=== PATIENT | male | born 1955 | race Caucasian/White ===

== ENCOUNTER 2018-07-10 09:07 | Emergency (ER) | payer MEDICAID ==
[~2018-07-10] VITALS: Ht 167.6 cm; Wt 83.5 kg
[2018-07-10 09:13] VITALS: Ht 167.6 cm; Wt 83.5 kg
[2018-07-10 10:16] LABS: BASOPHIL % 0.5 % (0-2); PLATELET COUNT 177 x10^3mcL (130-400); RED CELL DISTRIBUTION WIDTH 11.8 % (11.5-14.5)
[2018-07-10 10:27] LABS: ALBUMIN 4.2 g/dL (3.4-5.0); ALKALINE PHOSPHATASE 74 U/L (46-116); ALT/SGPT 69 U/L (16-63); AST/SGOT 37 U/L (15-37); BILIRUBIN TOTAL 0.9 mg/dL (0.20-1.00); CALCIUM 9.2 mg/dL (8.5-10.1); CARBON DIOXIDE 28.6 mmol/L (21-32); CHLORIDE SERUM 101 mmol/L (98-107); CREATININE SERUM 0.7 mg/dL (0.7-1.3); GFR1 > 60 mL/min; GLUCOSE SERUM 189 mg/dL (74-106); SODIUM SERUM 137 mmol/L (136-145); TOTAL PROTEIN, SERUM 7.5 g/dL (6.4-8.2)
[2018-07-10 10:58] VITALS: BP 140/85
== END 2018-07-10 10:58 | disposition home or self-care (01) ==
LOC: ED 09:07
PROVIDERS: Emergency Medicine
DX: R07.89 Other chest pain (principal); I10 Essential (primary) hypertension
CPT/HCPCS: 36415; 82962; Q0092

== ENCOUNTER 2019-07-30 07:35 | Inpatient (IN) | payer MEDICAID ==
[~2019-07-30] VITALS: Ht 167.6 cm; Wt 86.2 kg
--- NOTE | 2019-07-30 07:49 | NUR ---
PER PT STS THAT HE HAS BEEN HAVING CHEST PRESSURE FOR SIX DAYS. PER PT CHEST PRESSURE RADIATES TO RIGHT SIDE OF ABDOMEN. PT STS THAT HE HAS NUMBNESS IN HIS LEFT HAND. PT STS THAT HE HAS BEEN "STRESSING OUT" SO IT INCREASES WITH STRESS. PER PT STS HE HAS SOME DIZZINESS AND BLURRY VISION. PT STS THAT HE HAS NOT BEEN ABLE TO GET HIS METFORMIN FROM HIS DOCTOR DUE TO THEM "NOT CARING". PT STS THAT HE HAS A DRY MOUTH AND HE BELEIVES HIS SUGAR US UNCONTROLLED, STS "I CANT BUT THOSE FANCEY FOODS". PT PLACED ON FULL CM. 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 PT IS AAOX4. SKINDS INTACT-PINK, WARM AND DRY. VSS. RESP E/U. WILL CONTINUE TO MONITOR.
--- NOTE | 2019-07-30 07:57 | NUR ---
DR. MENDEZ AT BEDSIDE FOR MSE.
[2019-07-30 08:21] LABS: BASOPHIL % 0.5 % (0-2); PLATELET COUNT 189 x10^3mcL (130-400); RED CELL DISTRIBUTION WIDTH 12.7 % (11.5-14.5)
[2019-07-30 08:33] LABS: CALCIUM 8.5 mg/dL (8.5-10.1); CARBON DIOXIDE 27.1 mmol/L (21-32); CHLORIDE SERUM 102 mmol/L (98-107); CREATININE SERUM 0.7 mg/dL (0.7-1.3); GFR1 > 60 mL/min; GLUCOSE SERUM 304 mg/dL (74-106); POTASSIUM SERUM 3.7 mmol/L (3.5-5.1); SODIUM SERUM 138 mmol/L (136-145)
[2019-07-30 08:38] LABS: ALBUMIN 3.9 g/dL (3.4-5.0); ALKALINE PHOSPHATASE 109 U/L (46-116); ALT/SGPT 54 U/L (16-63); AST/SGOT 31 U/L (15-37); BILIRUBIN TOTAL 0.71 mg/dL (0.20-1.00); TOTAL PROTEIN, SERUM 7.3 g/dL (6.4-8.2)
[2019-07-30 08:38] LABS: UA SPECIFIC GRAVITY 1.015 (1.005-1.035); microscopic required? YES; urine erythrocyte TRACE (NEGATIVE)
--- NOTE | 2019-07-30 09:12 | NUR ---
PT IN POSITION OF COMFORT SITTING UPRIGHT. VSS. RESP E/U. WILL CONTINUE TO MONITOR.
--- NOTE | 2019-07-30 09:33 | NUR ---
MEDICATED PER EMAR.
--- NOTE | 2019-07-30 11:08 | NUR ---
REPORT GIVEN TO MEGHANN MALIK TO ASSUME CARE OF PT.
[2019-07-30 12:09] VITALS: BP 141/81
--- NOTE | 2019-07-30 12:57 | NUR ---
07/30/19; 1145: REPORT RECEIVED FROM GERARD ED RN. PATIENT ARRIVED BY MARIN TO TELEMETRY ROOM 209B. PATIENT IS ALERT AND ORIENTED X 4. RESPIRATION EVEN AND UNLABORED. NO SIGNS OF DISTRESS. MINIMAL COMPLAINTS OF "CHEST BRUISING" IN CHEST AREA. DR. SHARP NOTIFIED AND MADE AWARE. PATIENT APPEARS WELL-RESTED. WILL CONTINUE TO MONITOR. CALL LIGHT WITHIN REACH.
--- NOTE | 2019-07-30 15:48 | NUR ---
PATIENT RESTING IN BED. NO SIGNS OF DISTRESS NOTED. WILL CONTINUE TO MONITOR.
[2019-07-30 18:08] VITALS: BP 167/84
--- NOTE | 2019-07-30 18:37 | NUR ---
PATIENT IN BED WATCHING TV. NO SIGNS OF DISTRESS NOTED. 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 IT IS HEALED. WILL ENDORSE TO TMD TEACHER ASSISTANT RN.
--- NOTE | 2019-07-30 19:30 | NUR ---
RECEIVED PT IN BED AWAKE, ALERT,ORIENTED X4. NO SOB ON ROOM AIR. HE DENIED CHEST PAIN . BOWEL SOUNDS ACTIVE. NO C/O ABDL PAIN. W/ IV HEPLOCK TO LTAC. CALL LIGHT W/IN REACH.
[2019-07-30 21:20] VITALS: BP 132/72
[2019-07-31 00:35] LABS: AMPHETAMINE QUAL UR NONE DETECTED (See below)
--- NOTE | 2019-07-31 02:00 | NUR ---
PT SLEEPING SOUNDLY. HE IS EASILY AROUSABLE. NO C/O DISCOMFORT.
[2019-07-31 06:06] VITALS: BP 139/74
--- NOTE | 2019-07-31 07:00 | NUR ---
RECEIVED BEDSIDE REPORT FROM SCALE MANAGER NURSE AT THIS TIME. PATIENT RESTING COMFORTABLY IN BED. NO APPARENT DISTRESS OR DISCOMFORT NOTED. BREATHING EVEN AND UNLABORED. NO RESPIRATORY DISTRESS OR DISCOMFORT NOTED. PATIENT DENIES CHEST PAIN/PRESSURE AT THIS TIME. TELE [address] IV PATENT AND INTACT. ALL QUESTIONS AND CONCERNS ADDRESSED. ALL NEEDS ATTENDED TO. WILL CONTINUE TO MONITOR
[2019-07-31 07:02] LABS: BASOPHIL % 0.6 % (0-2); PLATELET COUNT 192 x10^3mcL (130-400); RED CELL DISTRIBUTION WIDTH 12.8 % (11.5-14.5)
[2019-07-31 07:13] LABS: CALCIUM 8.4 mg/dL (8.5-10.1); CARBON DIOXIDE 24.7 mmol/L (21-32); CHLORIDE SERUM 103 mmol/L (98-107); CREATININE SERUM 0.7 mg/dL (0.7-1.3); GFR1 > 60 mL/min; GLUCOSE SERUM 220 mg/dL (74-106); MAGNESIUM 1.7 mg/dL (1.8-2.4); POTASSIUM SERUM 4.1 mmol/L (3.5-5.1); SODIUM SERUM 136 mmol/L (136-145)
[2019-07-31 09:04] VITALS: BP 127/63
--- NOTE | 2019-07-31 09:48 | NUR ---
MORNING MEDICATIONS ADMINISTERED. PATIENT TOLERATED MEDICATIONS WELL. NO APPARENT ADVERSE EFFECTS NOTED. ALL NEEDS ATTENDED TO. WILL CONTINUE TO MONITOR
--- NOTE | 2019-07-31 11:48 | NUR ---
PATIENT BLOOD SUGAR 253 AT THIS TIME. 9 UNITS OF INSULIN COVERAGE REQURIED (SEE EMAR). ALL NEEDS ATTENDED TO. WILL CONTINUE TO MONITOR
--- NOTE | 2019-07-31 13:00 | NUR ---
PATIENT SITTING UP IN BED EATING LUNCH AT THIS TIME. PATIENT TOLERATING DIET WELL. NO APPARENT ADVERSE EFFECTS NOTED. ALL NEEDS ATTENDED TO. WILL CONTINUE TO MONITOR
--- NOTE | 2019-07-31 14:11 | NUR ---
Discount pharmacy card and list to low cost medical clinics given to patient by Carlos.
[2019-07-31 14:22] VITALS: BP 127/63
[2019-07-31] MEDS ORDERED: LISINOPRIL10 MG PO (15:05)
[2019-07-31] MEDS ORDERED: METFORMIN HYDR500 M1 PO (15:06)
[2019-07-31] MEDS ORDERED: LIPITOR40 MG PO (15:09)
--- NOTE | 2019-07-31 15:40 | NUR ---
PATIENT STABLE TO BE DISCHARGED TO HOME. DISCHARGE INSTRUCTIONS GIVEN WELL EDUCATION. INSTRUCTED PATIENT ABOUT FOLLOW UP APPOINTMENT. PATIENT VERBALIZES UNDERSTANDING. IV REMOVED WITH CATH INTACT. ID BANDS REMOVED. TELE MONITOR REMOVED AND RETURNED TO DEPUTY SHERIFF BAILIFF. ALL BELONGINGS WITH PATIENT. ALL QUESTIONS AND CONCERNS ADDRESSED. ALL NEEDS ATTENDED TO. ESCORTED DOWN TO THE LOBBY VIA WHEELCHAIR AT THIS TIME
--- NOTE | 2019-08-01 15:14 | NUR ---
ECHO NOT DONE-DISCHARGED
[2019-08-02 10:25] VITALS: Ht 167.6 cm; Wt 86.2 kg
== END 2019-07-31 15:42 | disposition home or self-care (01) | DRG 313 ==
LOC: ED 07:35 → DU 10:02
PROVIDERS: Emergency Medicine; Family Medicine; ADMIT Internal Medicine
DX: R07.89 Other chest pain (principal); I10 Essential (primary) hypertension; F41.9 Anxiety disorder, unspecified; E78.5 Hyperlipidemia, unspecified; E11.65 Type 2 diabetes mellitus with hyperglycemia
CPT/HCPCS: 82962; 83880; G0378; J1815; J7030; Q0092

== ENCOUNTER 2019-08-06 10:19 | Emergency (ER) | payer MEDICAID ==
[~2019-08-06] VITALS: Ht 167.6 cm; Wt 89.1 kg
[~2019-08-06 10:19] MED LIST: LIPITOR40 MG PO; LISINOPRIL10 MG PO; METFORMIN HYDR500 M1 PO
[2019-08-06 10:25] VITALS: Ht 167.6 cm; Wt 89.1 kg
[2019-08-06 12:03] LABS: BASOPHIL % 0.5 % (0-2); PLATELET COUNT 171 x10^3mcL (130-400); RED CELL DISTRIBUTION WIDTH 12.6 % (11.5-14.5)
[2019-08-06 12:10] LABS: CALCIUM 8.4 mg/dL (8.5-10.1); CARBON DIOXIDE 27.3 mmol/L (21-32); CHLORIDE SERUM 101 mmol/L (98-107); CREATININE SERUM 0.7 mg/dL (0.7-1.3); GFR1 > 60 mL/min; GLUCOSE SERUM 268 mg/dL (74-106); POTASSIUM SERUM 4.1 mmol/L (3.5-5.1); SODIUM SERUM 136 mmol/L (136-145)
[2019-08-06 13:51] VITALS: BP 133/78
== END 2019-08-06 13:51 | disposition home or self-care (01) ==
LOC: ED 10:19
PROVIDERS: Emergency Medicine
DX: E11.65 Type 2 diabetes mellitus with hyperglycemia (principal); I10 Essential (primary) hypertension; E78.00 Pure hypercholesterolemia, unspecified
CPT/HCPCS: 36415